=== PATIENT | female | born 1945 | race Caucasian/White ===

== ENCOUNTER 2023-10-07 10:00 | Emergency (ER) | payer MEDICARE ==
[~2023-10-07] VITALS: Ht 149.9 cm; Wt 53.5 kg
[2023-10-07 10:08] VITALS: BP 156/95
[2023-10-07 10:14] VITALS: BP 161/81
[2023-10-07 10:29] VITALS: BP 161/81
[2023-10-07 10:30] VITALS: BP 140/76
== END 2023-10-07 11:08 | disposition home or self-care (01) ==
LOC: ED 10:00
DX: H11.32 Conjunctival hemorrhage, left eye (principal); I10 Essential (primary) hypertension